=== PATIENT | female | born 1945 | race Two or more races ===

== ENCOUNTER 2021-04-27 16:46 | Inpatient (IN) | payer MEDICARE, OTHER ==
[~2021-04-27] VITALS: Ht 142.2 cm; Wt 42.2 kg
[2021-04-27] MEDS ORDERED: WARF1TAB2 (17:08)
[2021-04-27] MEDS ORDERED: SITA1TAB2 PO (17:08)
--- NOTE | 2021-04-27 17:08 | NUR ---
PT DOES NOT REMEMBER NAMES AND DOSAGES OF HER HOME MEDICATION. PT's RELATIVES ARE GOING TO BRING MEDICATION LIST LATER.
[2021-04-27 17:12] LABS: HEMATOCRIT 43.1 % (31.2-41.9); MEAN CORPUSCULAR HEMOGLOBIN 34.9 uug (24.7-32.8); MEAN CORPUSCULAR VOLUME 105.9 fL (75.5-95.3); PLATELET COUNT (AUTO) 115 K/uL (179-408)
[2021-04-27 17:14] LABS: CARBON DIOXIDE 27 mmol/L (21-32); CHLORIDE 98 mmol/L (98-107); CREATININE 2.1 mg/dL (0.6-1.3); GLUCOSE 264 mg/dL (74-106); POTASSIUM 4.4 mmol/L (3.5-5.1); UREA NITROGEN, BLOOD 38 mg/dL (7-18)
--- NOTE | 2021-04-27 17:23 | NUR ---
Pt was crossing street, lost balance and fell backwards, striking rear of head, approx 4 cm diameter contusion w/dried blood in hair and some swelling. Pt denies CP, SOB, Dizziness, n/v, no distress noted.
--- NOTE | 2021-04-27 18:35 | NUR ---
cleaned some blood off of pt's head, no active bleeding started, no obvious wound found, MD informed.
--- NOTE | 2021-04-27 19:30 | NUR ---
Patient is resting comfortably in bed with eyes closed, no acute distress noted.
--- NOTE | 2021-04-27 22:22 | NUR ---
Called [facility] to page Dr. Brandt.
[2021-04-27] MEDS ORDERED: Z GUARD REMEDY PASTE 57 GM TUBE TOP PRN (23:00)
[2021-04-27] MEDS ORDERED: MAGNESIUM HYDROXIDE 30 ML LIQUID UDC PO PRN (23:00)
[2021-04-27] MEDS ORDERED: ACETAMINOPHEN 325 MG TABLET PO PRN (23:00)
[2021-04-27] MEDS ORDERED: ONDANSETRON 4 MG/2 ML VIAL IV PRN (23:00)
--- NOTE | 2021-04-27 23:15 | NUR ---
Started 20g IV R wrist for admission to floor.
--- NOTE | 2021-04-27 23:30 | NUR ---
Pt. admitted to telemetry room 312, under care of Dr. Brandt. Belongs List completed
[2021-04-28 01:16] VITALS: BP 130/80
[2021-04-28 04:30] VITALS: BP 125/72
--- NOTE | 2021-04-28 05:18 | NUR ---
Pt admitted 04/27/21 at 2340H. Denies pain at this time. No distress noted. Pertinent assessment complete. Pt mainly guamanian speaking, but able to make needs known. Pt is ambulatory with assist. Commode at bedside. IV site intact and patent. Safety and comfort provided. No other issues or concerns at this time, will endorse to day shift.
[2021-04-28 06:31] LABS: HEMATOCRIT 39.8 % (31.2-41.9); MEAN CORPUSCULAR HEMOGLOBIN 35.5 uug (24.7-32.8); MEAN CORPUSCULAR VOLUME 106.5 fL (75.5-95.3); PLATELET COUNT (AUTO) 90 K/uL (179-408)
[2021-04-28] MEDS: PANTOPRAZOLE SODIUM 40 MG TABLET.DR PO SCH (06:33)
[2021-04-28 07:04] LABS: CREATININE 1.3 mg/dL (0.6-1.3); MAGNESIUM 1.8 mg/dL (1.8-2.4); PHOSPHOROUS 3.3 mg/dL (2.5-4.9)
[2021-04-28 07:55] LABS: THYROID STIMULATING HORMONE 1.342 mIU/mL (0.358-3.740)
[2021-04-28 10:24] LABS: EOSINOPHILS % (MANUAL) 4 % (0-8); LYMPHOCYTES % (MANUAL) 21 % (20-40); MONOCYTES % (MANUAL) 7 % (2-10); MYELOCYTES % 2 % (0-0); NEUTROPHILS % (MANUAL) 66 % (42-75)
[2021-04-28 11:20] VITALS: BP 129/73
[2021-04-28] MEDS ORDERED: WARF4TAB72 PO (11:25)
[2021-04-28] MEDS: LINAGLIPTIN 5 MG TABLET PO SCH (12:10)
[2021-04-28 12:41] VITALS: BP_SYST 121; BP_SYST 123; BP_SYST 134; BP_DIAS 64; BP_DIAS 68; BP_DIAS 73
[2021-04-28 15:19] VITALS: BP 110/68
[2021-04-28] MEDS ORDERED: WARFARIN SODIUM 4 MG TABLET PO SCH (17:00)
[2021-04-28] MEDS: METFORMIN HCL 500 MG TABLET PO SCH (17:04)
[2021-04-28] MEDS: WARFARIN SODIUM 4 MG TABLET PO SCH (18:11)
--- NOTE | 2021-04-28 18:43 | NUR ---
Patient resting in bed. AOx3-4. On room air. With right wrist #22 heplock. No signs of acute distress. Patient compliant with medications and care. Patient denies pain or discomfort. Safety measures provided. Needs anticipated and provided. Will endorse to incoming shift for continuity of care.
[2021-04-28 20:00] VITALS: BP 114/67
[2021-04-29 04:00] VITALS: BP 113/73
[2021-04-29] MEDS: PANTOPRAZOLE SODIUM 40 MG TABLET.DR PO SCH (06:48)
[2021-04-29 06:54] LABS: MEAN CORPUSCULAR HEMOGLOBIN 35.4 uug (24.7-32.8); MEAN CORPUSCULAR VOLUME 106.4 fL (75.5-95.3); PLATELET COUNT (AUTO) 76 K/uL (179-408)
[2021-04-29 07:24] LABS: *BILIRUBIN,URIN NEGATIVE (NEGATIVE); *CLARITY,URINE CLEAR (CLEAR); *COLOR,URINE YELLOW (YELLOW); *KETONES,URINE NEGATIVE (NEGATIVE); *UROBILINOGEN,URINE 0.2 E.U./dl (NORMAL); LEUKOCYTE ESTERASE ,URINE NEGATIVE (NEGATIVE); NITRITE, URINE NEGATIVE (NEGATIVE); PH,URINE 6.5 (5.0-8.0); UGLUCOSE NEGATIVE (NEGATIVE)
[2021-04-29 07:36] LABS: *CREATININE,URINE 88.9 mg/dL (30-125); *URINE TOTAL PROTEIN RANDOM 39.7 mg/dL (<150/24HR)
[2021-04-29 08:01] LABS: *BLOOD, URINE TRACE (NEGATIVE)
[2021-04-29 08:07] LABS: CARBON DIOXIDE 27 mmol/L (21-32); CHLORIDE 100 mmol/L (98-107); CREATININE 1.5 mg/dL (0.6-1.3); GLUCOSE 152 mg/dL (74-106); MAGNESIUM 1.9 mg/dL (1.8-2.4); PHOSPHOROUS 3.3 mg/dL (2.5-4.9); POTASSIUM 4.7 mmol/L (3.5-5.1); UREA NITROGEN, BLOOD 38 mg/dL (7-18)
[2021-04-29] MEDS: METFORMIN HCL 500 MG TABLET PO SCH ×2 (08:48→16:54)
[2021-04-29] MEDS: LINAGLIPTIN 5 MG TABLET PO SCH (08:49)
[2021-04-29 08:58] VITALS: BP 127/76
--- NOTE | 2021-04-29 09:53 | NUR ---
PATIENT SEEN AND EXAMINED BY DR SILVA WITH NEW ORDERS AND NOTED.
[2021-04-29 11:44] LABS: BACTERIA,URINE NONE SEEN /HPF (NONE SEEN); RBC,URINE 0-3 /HPF (0-3); WBC,URINE 0-3 /HPF (0-3)
[2021-04-29 11:45] LABS: SQUAMOUS EPITHELIAL CELL,UR NONE SEEN /HPF (NONE SEEN)
[2021-04-29 12:00] VITALS: BP 114/66
--- NOTE | 2021-04-29 15:00 | NUR ---
PATIENT SEEN AND EXAMINED BY DR RAE SCHOOL DIRECTOR WITH NEW ORDERS AND NOTED
[2021-04-29 15:51] VITALS: BP 111/68
[2021-04-29] MEDS: CARVEDILOL 3.125 MG TABLET PO SCH ×2 (16:54→17:09)
[2021-04-29] MEDS: WARFARIN SODIUM 4 MG TABLET PO SCH (16:57)
--- NOTE | 2021-04-29 17:09 | NUR ---
TOO CLOSE TO ADMINISTER ANOTHER DOSE ORDERED
--- NOTE | 2021-04-29 19:00 | NUR ---
RECD PT IN BED, QUIETLY RESTING, NO ACUTE DISTRESS NOTED.ALERT ORIENTED X3, VERY PLEASANT LADY.NEEDS ATTENDED TO.ASSISTED TO USE BEDSIDE COMMODE. VOIDED FREELY WELL,KEPT DRY AND CLEAN. ABRASION ON LEFT ELBOW ANDLEFT ANKLE STILL EVIDENT. ,
[2021-04-29 20:23] VITALS: BP 103/60
--- NOTE | 2021-04-29 23:00 | NUR ---
HS CARE DONE, SLEPT AT LONG INTERVALS.G 22 ON RIGHT WRIST PATENT AND INTACT.
[2021-04-30 06:15] LABS: HEMATOCRIT 39.1 % (31.2-41.9); MEAN CORPUSCULAR HEMOGLOBIN 35.5 uug (24.7-32.8); PLATELET COUNT (AUTO) 68 K/uL (179-408)
[2021-04-30] MEDS: PANTOPRAZOLE SODIUM 40 MG TABLET.DR PO SCH (06:39)
[2021-04-30 06:40] LABS: CREATININE 1.3 mg/dL (0.6-1.3); MAGNESIUM 2.1 mg/dL (1.8-2.4); PHOSPHOROUS 2.6 mg/dL (2.5-4.9)
[2021-04-30 07:16] VITALS: BP 119/75
--- NOTE | 2021-04-30 07:18 | NUR ---
BP THIS AM SITTING 109/68,STANDING 115/71,ENDORSED TO AM NURSE IN APPARENTLY FAIR CONDITION.
[2021-04-30] MEDS: METFORMIN HCL 500 MG TABLET PO SCH ×2 (08:36→17:31)
[2021-04-30] MEDS: LINAGLIPTIN 5 MG TABLET PO SCH (08:36)
[2021-04-30] MEDS: CARVEDILOL 3.125 MG TABLET PO SCH ×2 (08:36→17:31)
--- NOTE | 2021-04-30 09:25 | NUR ---
DR ARNDT HERE SEEN PATIENT WITH NO NEW ORDERS AT THIS TIME
--- NOTE | 2021-04-30 11:21 | NUR ---
PATIENT SEEN AND EXAMINED BY DR CLINE WITH NEW ORDERS AND NOTED
[2021-04-30 11:47] VITALS: BP 117/65
[2021-04-30] MEDS ORDERED: LOSARTAN POTASSIUM 25 MG TABLET PO SCH (12:15)
[2021-04-30] MEDS: FUROSEMIDE 40 MG TABLET PO SCH (12:27)
[2021-04-30 16:00] VITALS: BP 104/61
--- NOTE | 2021-04-30 18:00 | NUR ---
COUMADIN GIVEN ORDERED INR IS 2.34 WITH NO ADVERSE OR ALLERGIC REACTIONS AT THIS TIME.
[2021-04-30] MEDS: WARFARIN SODIUM 4 MG TABLET PO SCH (18:15)
--- NOTE | 2021-04-30 20:16 | NUR ---
Patient awake alert and verbally responsive. Denies pain at this time. No respiratory distress noted.On Ra. Assisted patient using bedside commode.Voided well.Iv on rt wrist in place.Continue fall precaution and safety measures. Call light with in reach.
[2021-04-30 20:20] VITALS: BP 95/52
[2021-05-01 04:45] VITALS: BP 124/75
[2021-05-01] MEDS: PANTOPRAZOLE SODIUM 40 MG TABLET.DR PO SCH (06:12)
[2021-05-01 06:35] LABS: HEMATOCRIT 40.3 % (31.2-41.9); MEAN CORPUSCULAR HEMOGLOBIN 35.1 uug (24.7-32.8); PLATELET COUNT (AUTO) 70 K/uL (179-408)
[2021-05-01 06:55] LABS: CREATININE 1.3 mg/dL (0.6-1.3); POTASSIUM 5.4 mmol/L (3.5-5.1)
[2021-05-01] MEDS ORDERED: FURO40TA5 PO (07:38)
[2021-05-01] MEDS ORDERED: LOSA25TA3 PO (07:38)
[2021-05-01] MEDS ORDERED: CARV3.122 PO (07:38)
--- NOTE | 2021-05-01 08:00 | NUR ---
RECEIVED CHANGE OF SHIFT REPORT. PT A/OX4, S/P FALL. PT BAHAMIAN SPEAKING, USES BEDSIDE COMMODE WITH ASSIST. PT HAS IV ON RIGHT WRIST SL, NO SIGNS OF INFILTRATION, IV INTACT. PT ON ROOM AIR, SATURATING AT 98%, NO SIGNS OF DISTRESS, NO REPORTS OF PAIN AT THIS TIME. STATED PT WILL BE DC'D TODAY, WILL PROCEED WITH DISCHARGE ORDERS.
[2021-05-01] MEDS: LINAGLIPTIN 5 MG TABLET PO SCH (08:46)
[2021-05-01] MEDS: METFORMIN HCL 500 MG TABLET PO SCH ×2 (08:47→17:51)
[2021-05-01] MEDS: FUROSEMIDE 40 MG TABLET PO SCH (08:47)
[2021-05-01] MEDS: CARVEDILOL 3.125 MG TABLET PO SCH ×2 (08:52→17:51)
[2021-05-01] MEDS ORDERED: FUROSEMIDE 20 MG/2 ML VIAL IV ONE (11:00)
[2021-05-01 12:00] VITALS: BP 112/63
[2021-05-01 15:52] VITALS: BP 106/59
[2021-05-01] MEDS: WARFARIN SODIUM 4 MG TABLET PO SCH (17:48)
[2021-05-01 17:51] VITALS: BP 115/65
--- NOTE | 2021-05-01 18:35 | NUR ---
PT DISCHARGED HOME WITH ALL PAPERWORK IN HAND. PT GIVEN DISCHARGE INSTRUCTIONS AND FOLLOW UP INFORMATION. PT PICKED UP BY NIECE, SHAQUILLE, SHE WAS ALSO MADE AWARE OF MEDICATIONS SENT TO PHARMACY AND FOLLOW UP INFO. PT VITALS WNL, AMBULATORY WITH ASSIST, ATTEMPTED TO TAKE PHOTOS OF PT WOUNDS FROM ADMISSION, BOTH CAMERAS WERE NOT TURNING ON AND PT WANTED TO LEAVE WITH HER NIECE. I WAS ABLE TO GET A PHOTO OF THE ABRASION ON HER HEAD, PT ALSO HAS BRUISING ON HER L FLANK AND BACK WHICH HAD BOTH SUBSIDED. PT LEFT ELBOW ABRASION HAS ALSO RESOLVED SINCE ADMISSION. PT LEFT VIA PRIVATE CAR WITH FAMILY.
== END 2021-05-01 18:35 | disposition home or self-care (01) | DRG 682 ==
LOC: ER 16:49 → TELE3 23:22 → MEDSURG3 04-28 12:43
PROVIDERS: ADMIT Student in an Organized Health Care Education/Training Program; ATTEND Family Medicine
DX: N17.0 Acute kidney failure with tubular necrosis (principal); I21.A1 Myocardial infarction type 2; E87.1 Hypo-osmolality and hyponatremia; I42.9 Cardiomyopathy, unspecified; I48.20 Chronic atrial fibrillation, unspecified; R55 Syncope and collapse; S01.01XA Laceration without foreign body of scalp, initial encounter; W18.30XA Fall on same level, unspecified, initial encounter; Y92.89 Other specified places as the place of occurrence of the external cause; E11.65 Type 2 diabetes mellitus with hyperglycemia; I07.1 Rheumatic tricuspid insufficiency; M89.9 Disorder of bone, unspecified; Z79.01 Long term (current) use of anticoagulants; Z88.0 Allergy status to penicillin; Z79.4 Long term (current) use of insulin; Z79.899 Other long term (current) drug therapy; Z95.810 Presence of automatic (implantable) cardiac defibrillator; E87.70 Fluid overload, unspecified
CPT/HCPCS: 36415; 70030-TC; 70450; 71045; 83735; 84100; 84156; 84300; 84443; 85025; 85610; 85730; 93005; 93307; A4663; G0378; J1940